=== PATIENT | female | born 1965 | race Caucasian/White ===

== ENCOUNTER → 2018-06-10 | Outpatient (CLI) | payer OTHER ==
[~2018-06-10] MED LIST: E-Z-PAQUE 96% w/w SUSP 176GM BTL As Ordered
== END ==
LOC: M RAD 07:51
DX: K50.10 Crohn's disease of large intestine without complications (principal); R10.11 Right upper quadrant pain

== ENCOUNTER → 2018-09-23 | Outpatient (CLI) | payer OTHER ==
--- NOTE | 2018-09-23 10:00 | REP ---
RIGHT UPPER QUADRANT ULTRASOUND: Real-time sonographic evaluation of the right upper quadrant performed. The gallbladder demonstrates no evidence of intraluminal sludge or calculi, wall thickening or pericholecystic fluid. There is no intrahepatic or extrahepatic biliary dilatation, common bile duct measuring 4 mm. Liver demonstrates diffuse heterogeneous echotexture, generally coarsened and somewhat increased in echotexture, suggesting diffuse fibrofatty infiltration. There is a cyst in the inferior right lobe measuring 3.0 x 2.0 x 2.5 cm. Hyperechoic nodule in the left lobe probably represents a hemangioma, measuring 1.4 x 1.2 x 1.2 cm. Pancreas demonstrates no gross mass. Right kidney demonstrates no hydronephrosis with normal size 10.6 cm in length. There are a few scattered tiny echogenic foci in the right kidney which could represent vascular calcifications, tiny renal calculi cannot be excluded. No ascites is seen. IMPRESSION: No gallstones, free fluid or biliary dilatation. Liver demonstrates findings compatible with diffuse fibrofatty infiltration. There is a cyst in the right lobe of the liver with a septation measuring 3 cm in maximum diameter. Hyperechoic nodule in the left lobe probably represents a hemangioma 1.4 cm in diameter. Electronically Signed by Cesar Solorzano MD 09/23/2018 01:40 P
== END ==
LOC: M RAD 06:52
PROVIDERS: ATTEND Surgery
DX: R10.9 Unspecified abdominal pain (principal)

== ENCOUNTER → 2019-06-02 | Outpatient (REF) | payer OTHER ==
[2019-06-02 13:42] LABS: APPEARANCE, URINE HAZY (CLEAR); BACTERIA, URINE AUTO NEGATIVE (NEGATIVE); BILIRUBIN, URINE AUTO NEGATIVE (NEGATIVE); BLOOD, URINE BLOOD 1+ (NEGATIVE); COLOR, URINE YELLOW (YELLOW); GLUCOSE, URINE (UA) AUTO NEGATIVE (NEGATIVE); KETONE, URINE AUTO NEGATIVE (NEGATIVE); LEUKOCYTE ESTERASE, URINE AUTO NEGATIVE (NEGATIVE); MUCUS, URINE SMALL (NEGATIVE); NITRITE, URINE AUTO NEGATIVE (NEGATIVE); PROTEIN, URINE AUTO NEGATIVE (NEGATIVE); RBC, URINE AUTO 1 /HPF (0-3); SPECIFIC GRAVITY URINE AUTO 1.004 (1.002-1.035); SQUAMOUS EPITHELIAL CELL UR AU 0 /HPF (0-6); UROBILINOGEN, URINE AUTO 0.2 mg/dL (0.0-2.0); WBC, URINE AUTO 0 /HPF (0-3)
== END ==
LOC: M SMT 12:49
PROVIDERS: ATTEND Nurse Practitioner Women's Health
DX: R31.29 Other microscopic hematuria (principal)